=== PATIENT | female | born 1960 ===

== ENCOUNTER 2017-05-24 11:16 | Day surgery (SDC) | payer BC ==
[2017-05-24] MEDS ORDERED: Lactated Ringer's 1,000 ML IV ONE (14:00)
[2017-05-24] MEDS: Gentamicin 160 MG in Sodium Chloride 0.9% 100 ML IVPB ONE ×2 (14:04→14:15)
[2017-05-24] MEDS ORDERED: Propofol 10 mg/ml Inj (20 ML) ONE (14:05)
[2017-05-24] MEDS ORDERED: Midazolam 2 MG/2 ML VIAL ONE (14:07)
--- NOTE | 2017-05-24 14:38 | PCM.SURG1 ---
Surgeon's Initial Post Op Note - Surgeon's Notes Surgeon: Jung Donor Support Technician: nils Type of Anesthesia: General LMA Anesthesia Administered By: staff Pre-Operative Diagnosis: Right UPJ calculi Operative Findings: same Post-Operative Diagnosis: Right upj calculi Operation Performed: cysto stone manipulation insertion stent Specimen/Specimens Removed: na Estimated Blood Loss: EBL {In ML}: 0 Blood Products Given: N/A Drains Used: No Drains Post-Op Condition: Good Date of Surgery/Procedure: 05/24/17 Time of Surgery/Procedure: 14:38
[2017-05-24] MEDS ORDERED: Iohexol 240 (50 ml) ONE (14:41)
[2017-05-24] MEDS ORDERED: Lactated Ringer's 1,000 ML IV SCH (14:45)
[2017-05-24 16:11] VITALS: RESP 16; O2SAT 96
[2017-05-24 16:31] VITALS: BP 120/53; PULSE 80; TEMP 97.3
--- NOTE | 2017-05-24 16:56 | RAD ---
PROCEDURE: Intraoperative fluoroscopy HISTORY: RT KIDNEY CALCULI COMPARISON: Not available TECHNIQUE: Intraoperative fluoroscopy was provided for right ureteral stent placement. Total time of fluoroscopy was 3.4 seconds. FINDINGS: Three fluoroscopic spot films are submitted. Films are on file for review. IMPRESSION: Fluoroscopy provided.
--- NOTE | 2017-05-24 16:58 | RAD ---
HISTORY: RT KIDNEY CALCULI COMPARISON: No prior. FINDINGS: BOWEL: A nurse advocate radiograph demonstrates a normal bowel gas pattern. No abnormal intra-abdominal calcifications are seen. Surgical clips are seen in the right upper quadrant status post cholecystectomy. A 2nd film is submitted demonstrating placement of a right ureteral stent. Normal. No obstruction. No free air. BONES: Normal. OTHER FINDINGS: None. IMPRESSION: Right ureteral stent placement.
--- NOTE | 2017-07-05 09:39 | OP ---
PROCEDURE DATE: 05/24/2017 PREOPERATIVE DIAGNOSIS: Right ureteropelvic junction calculi. POSTOPERATIVE DIAGNOSIS: Right ureteropelvic junction calculi. PROCEDURE: Cysto, stone manipulation and insertion of stent. SURGEON: Uvaldo Feng MD DESCRIPTION OF PROCEDURE: As follows: Prior to the procedure, a detailed informed consent was obtained from the patient. She is aware of the procedure to be done, the limitations, its risks and complications. She agreed to accept those limitations and complications and proceed with the procedure. She was brought into the room, draped and prepped in the usual manner. A timeout was taken according to the rules and regulations of [facility]. A site check was taken by reviewing the x-report and x-ray films in the OR. Once this was done, the patient was draped and prepped in the usual manner and cystoscoped with #21 Storz panendoscope. The right ureteral orifice was cannulized with a 0.38 guidewire which is manipulated under fluoroscopic control into the renal pelvis and thereby pushing the UPJ stone backwards into the renal pelvis. A double-J stent was then passed over the guidewire and that was deployed with the distal end in the renal pelvis and the proximal end curled in the bladder. The patient tolerated the procedure well. She is aware that she needs further procedures such as lithotripsy done, then she should follow up in our office in one week. She was given the appropriate prescriptions. Uvaldo Feng MD
== END 2017-05-24 16:35 | disposition home or self-care (01) ==
LOC: MERGE 11:16 → C.SDS 11:16
PROVIDERS: ATTEND Urology
DX: N20.0 Calculus of kidney (principal); N20.2 Calculus of kidney with calculus of ureter
CPT/HCPCS: 52332; 74018; C1769; C2617; J1580; J7120; Q9966

== ENCOUNTER 2017-07-13 13:19 | Emergency (ER) | payer BC ==
[2017-07-13] MEDS ORDERED: Sodium Chloride 0.9% 1,000 ML IV ONE (15:18)
[2017-07-13 16:58] VITALS: RESP 18; O2SAT 97
--- NOTE | 2017-07-13 17:18 | C.PDOC ---
History Of Present Illness 56 yo female w/PMHx of Right kidney stone, s/p kidney stent removal by yesterday, come in for evaluation of sudden onset of Right flank pain associated with N/V since yesterday evening. Pt admits, " similar sx when I was diagnosed with Right kidney stones 1 year ago". Otherwise, pt denies high fever , chills, headache, dizziness, CP, SOB, dyspnea, diaphoresis, abd. pain, hematemesis, diarrhea, UTI sx. Ambulate to ED for evaluation, not in any apparent distress. Time Seen by Provider: 07/13/17 13:58 Chief Complaint (Nursing): Female Genitourinary History Per: Patient Past Medical History Reviewed: Historical Data, Nursing Documentation, Vital Signs Vital Signs: Last Vital Signs Temp 98.5 F 07/13/17 16:57 Pulse 80 07/13/17 16:57 Resp 18 07/13/17 16:57 BP 119/80 07/13/17 16:57 Pulse Ox 97 07/13/17 18:13 - Medical History PMH: Gall Bladder Disease, HTN, Kidney Stones, Chronic Kidney Disease Surgical History: Cholecystectomy Family History: States: Unknown Family Hx - Social History Hx Alcohol Use: No Hx Substance Use: No Review Of Systems Except As Marked, All Systems Reviewed And Found Negative. Constitutional: Negative for: Fever, Chills Eyes: Negative for: Vision Change ENT: Negative for: Ear Discharge, Nose Discharge, Throat Pain, Throat Swelling Cardiovascular: Negative for: Chest Pain Respiratory: Negative for: Cough Gastrointestinal: Positive for: Nausea, Vomiting Musculoskeletal: Positive for: Back Pain. Negative for: Neck Pain Skin: Negative for: Rash Neurological: Negative for: Weakness, Numbness, Altered Mental Status, Headache , Dizziness Physical Exam - Physical Exam Appears: Well, Non-toxic, No Acute Distress Skin: Normal Color, Warm, No Rash Head: Normacephalic Eye(s): bilateral: PERRL Nose: No Normal, No Discharge Oral Mucosa: Moist Throat: No Erythema Neck: Trachea Midline, Supple Chest: Symmetrical Cardiovascular: Rhythm Regular Respiratory: No Decreased Breath Sounds, No Accessory Muscle Use, No Stridor, No Wheezing Gastrointestinal/Abdominal: Soft, No Tenderness, No Distention, No Guarding Back: CVA Tenderness (Right) ED Course And Treatment - Laboratory Results Result Diagrams: 07/13/17 17:21 03/06/18 17:21 O2 Sat by Pulse Oximetry: 97 Pulse Ox Interpretation: Normal - CT Scan/US CT abd/pelvis Other Rad Studies (CT/US): Radiology Report Reviewed CT/US Interpretation: PROCEDURE: CT Abdomen and Pelvis without Oral or IV contrast. HISTORY: Right flank pain. COMPARISON: None available. TECHNIQUE : Contiguous axial images of the abdomen and pelvis. No oral or IV contrast administered. Coronal and Sagittal reformats generated. Radiation dose: Total exam DLP = 1117.10 mGy-cm. This CT exam was performed using one or more of the following dose reduction techniques: Automated exposure control, adjustment of the mA and/or kV according to patient size, and/or use of iterative reconstruction technique. FINDINGS: There is limited evaluation of the solid organs without the administration of IV contrast. LOWER THORAX: Mild patchy left lower lobe atelectasis or infiltrate. There is no visible pleural effusion or pneumothorax. Moderate to large hiatal hernia. LIVER: Unremarkable unenhanced appearance. GALLBLADDER AND BILE DUCTS: Cholecystectomy. PANCREAS : Unremarkable unenhanced appearance. SPLEEN: Unremarkable unenhanced appearance. ADRENALS: Unremarkable unenhanced appearance. KIDNEYS AND URETERS : 8 mm distal right ureteral calculus with proximal mild to moderate hydroureteronephrosis. Nonobstructing 4 mm right lower pole renal calculus. 1 mm nonobstructing left renal calculus. No left-sided hydroureter or hydronephrosis. BLADDER: The urinary bladder appears unremarkable. REPRODUCTIVE: Uterus is present. APPENDIX: The appendix appears within normal limits of caliber. No secondary signs of acute appendicitis. BOWEL: The stomach is nondistended. Lack of oral contrast limits evaluation for bowel pathology. The bowel loops appear within normal limits of caliber without evidence of intestinal obstruction. Diverticulosis without CT evidence of acute diverticulitis. PERITONEUM: No significant free fluid. No definite free air. LYMPH NODES: No bulky lymphadenopathy identified. VASCULATURE: No aortic aneurysm. BONES: No acute osseous abnormality is detected. OTHER FINDINGS: None. IMPRESSION: 8 mm obstructing distal right ureteral calculus with proximal mild to moderate hydroureteronephrosis. Diverticulosis without CT evidence of acute diverticulitis. Cholecystectomy clips. Mild patchy left lower lobe atelectasis or infiltrate. Correlate clinically. Moderate to large hiatal hernia. Additional findings as above. Progress Note: On re-eavl at 18:00, pt reports moderate improvement in pain. AFebrile, hemodynamicalys table. NOn-toxic. Pt was able tolerate Po intake. ENT: No acute findings. Lungs: CTA B/L, BS equyal B/L. ABd: benign, (-) guarding, (-) rebound. Back: (-) CVA tenderness. Blood work review, mild leukocytosis with left shift. BM_ normal renal function. UA (+) WBC, RBS. Case discussed with pt's Urologist , recommend antibiotic, analgesic, discharge with outpt f/u on 07/15/17. Rocephin given empirically for UTI, UCx- pending. Results review and discussed with pt. Pt understand and agrees with discharge. Disposition Counseled Patient/Family Regarding: Studies Performed, Diagnosis, Need For Followup, Rx Given - Disposition Referrals: Uvaldo Feng Jr., MD [Staff Provider] - Disposition: HOME/ ROUTINE Disposition Time: 18:09 Condition: STABLE Additional Instructions: Encourage fluids Flomax as prescribed by Take medication as prescribed today Follow up with on 07/15/17 for further evaluation and treatment. return to ED if any worsening or new changes. Prescriptions: Cefpodoxime [Vantin] 400 mg PO BID #28 tab Ondansetron ODT [Zofran ODT] 1 odt PO BID PRN #10 odt PRN Reason: Nausea/Vomiting traMADol [Ultram] 50 mg PO TID #7 tab Instructions: Urinary Tract Infections in Adults, Kidney Stones in Adults Forms: [facility] (Bahamian), Work/School/Gym Excuse - Clinical Impression Clinical Impression: Kidney stone, UTI (urinary tract infection)
[2017-07-13 17:24] LABS: BASO # 0.1 K/uL (0.0-0.2); BASO % 0.5 % (0.0-2.0); EOS % 0.2 % (0.0-4.0); HEMOGLOBIN 12.6 g/dL (11.0-16.0); LYMPH # 1.2 K/uL (1.0-4.3); LYMPH % 8.9 % (20.0-40.0); MEAN CELL VOLUME 85.5 fL (81.0-99.0); MEAN CORPUSCULAR HEMOGLOBIN 28.4 pg (27.0-31.0); MEAN CORPUSCULAR HGB CONC 33.2 g/dL (33.0-37.0); MEAN PLATELET VOLUME 7.4 fL (7.2-11.7); MONO # 0.9 K/uL (0.0-0.8); MONO % 6.9 % (0.0-10.0); NEUT # 10.9 K/uL (1.8-7.0); NEUT % 83.5 % (50.0-75.0); NRBC % 0.1 % (0.0-2.0); PLATELET COUNT 328 K/uL (130-400); RBC 4.45 Mil/uL (3.80-5.20); RED CELL DISTRIBUTION WIDTH 13.2 % (11.5-14.5)
[2017-07-13 17:30] LABS: SQUAMOUS EPITHIAL 5 /hpf (0-5); URINE BACTERIA RARE (<OCC); URINE BILIRUBIN NEGATIVE (NEGATIVE); URINE BLOOD 1+ (NEGATIVE); URINE CALCIUM OXALATE CRYSTALS MOD /hpf (<OCC); URINE CLARITY Hazy (Clear); URINE COLOR Yellow (YELLOW); URINE GLUCOSE (UA) NORMAL (Normal); URINE LEUKOCYTE ESTERASE TRACE Leu/uL (Negative); URINE NITRATE NEGATIVE (NEGATIVE); URINE PROTEIN 1+ mg/dL (NEGATIVE); URINE UROBILINOGEN NORMAL mg/dL (0.2-1.0)
--- NOTE | 2017-07-13 17:33 | CT ---
PROCEDURE: CT Abdomen and Pelvis without Oral or IV contrast. HISTORY: Right flank pain COMPARISON: None available. TECHNIQUE: Contiguous axial images of the abdomen and pelvis. No oral or IV contrast administered. Coronal and Sagittal reformats generated. Radiation dose: Total exam DLP = 1117.10 mGy-cm. This CT exam was performed using one or more of the following dose reduction techniques: Automated exposure control, adjustment of the mA and/or kV according to patient size, and/or use of iterative reconstruction technique. FINDINGS: There is limited evaluation of the solid organs without the administration of IV contrast. LOWER THORAX: Mild patchy left lower lobe atelectasis or infiltrate. There is no visible pleural effusion or pneumothorax. Moderate to large hiatal hernia. LIVER: Unremarkable unenhanced appearance. GALLBLADDER AND BILE DUCTS: Cholecystectomy. PANCREAS: Unremarkable unenhanced appearance. SPLEEN: Unremarkable unenhanced appearance. ADRENALS: Unremarkable unenhanced appearance. KIDNEYS AND URETERS: 8 mm distal right ureteral calculus with proximal mild to moderate hydroureteronephrosis. Nonobstructing 4 mm right lower pole renal calculus. 1 mm nonobstructing left renal calculus. No left-sided hydroureter or hydronephrosis. BLADDER: The urinary bladder appears unremarkable. REPRODUCTIVE: Uterus is present. APPENDIX: The appendix appears within normal limits of caliber. No secondary signs of acute appendicitis. BOWEL: The stomach is nondistended. Lack of oral contrast limits evaluation for bowel pathology. The bowel loops appear within normal limits of caliber without evidence of intestinal obstruction. Diverticulosis without CT evidence of acute diverticulitis. PERITONEUM: No significant free fluid. No definite free air. LYMPH NODES: No bulky lymphadenopathy identified. VASCULATURE: No aortic aneurysm. BONES: No acute osseous abnormality is detected. OTHER FINDINGS: None. IMPRESSION: 8 mm obstructing distal right ureteral calculus with proximal mild to moderate hydroureteronephrosis. Diverticulosis without CT evidence of acute diverticulitis. Cholecystectomy clips. Mild patchy left lower lobe atelectasis or infiltrate. Correlate clinically. Moderate to large hiatal hernia. Additional findings as above.
[2017-07-13 17:37] LABS: ALB/GLOB RATIO 1.1 (1.0-2.1); ALBUMIN 4.3 g/dL (3.5-5.0); ALT/SGPT 29 U/L (9-52); AST/SGOT 26 U/L (14-36); BLOOD UREA NITROGEN 14 mg/dL (7-17); CALCIUM 9.4 mg/dl (8.6-10.4); GFR AFRICAN-AMERICAN > 60; GFR NON-AFRICAN AMERICAN > 60; LIPASE 88 U/L (23-300)
[2017-07-13] MEDS ORDERED: cefTRIAXone IV 1 gm in Dextros 50 ML IVPB ONE (18:13)
[2017-07-13 18:18] LABS: EOSINOPHIL 1 % (0-4); LYMPHOCYTE 9 % (20-40); MONOCYTE 6 % (0-10); NEUTROPHIL 82 % (50-75); PLATELET ESTIMATE NORMAL (NORMAL); REACTIVE LYMPHOCYTES 2 % (0-0); TOTAL CELLS COUNTED 100
[2017-07-13 18:19] LABS: ANISOCYTOSIS SLIGHT
[2017-07-13 18:36] VITALS: BP 103/67; PULSE 82; TEMP 98.7
== END 2017-07-13 18:44 | disposition home or self-care (01) ==
LOC: C.ER 13:19
DX: N13.2 Hydronephrosis with renal and ureteral calculous obstruction (principal); N39.0 Urinary tract infection, site not specified; Z87.442 Personal history of urinary calculi
CPT/HCPCS: 74176; 80053; 81001; 83690; 85025; 87086; 96374; 96375; 99284; J0696; J1885; J2405; J7040

== ENCOUNTER 2017-07-19 10:59 | Day surgery (SDC) | payer BC ==
[2017-07-19 12:17] VITALS: BP 120/80
[2017-07-19] MEDS ORDERED: Gentamicin 160 MG in Sodium Chloride 0.9% 100 ML IVPB ONE (12:37)
[2017-07-19] MEDS ORDERED: Ciprofloxacin 400mg/200ml D5W 400 MG/200 ML BAG IVPB ONE (13:36)
[2017-07-19] MEDS ORDERED: Lidocaine 2% Jelly (Uro-Jet) ONE (13:37)
[2017-07-19] MEDS ORDERED: Iohexol 240 (50 ml) ONE (13:37)
[2017-07-19] MEDS ORDERED: Propofol 10 mg/ml Inj (20 ML) ONE ×2 (13:42→13:53)
[2017-07-19] MEDS ORDERED: Midazolam 2 MG/2 ML VIAL ONE (13:42)
[2017-07-19] MEDS ORDERED: HYDROmorphone 0.5 mg/0.5 ml ISec IVP PRN (14:12)
--- NOTE | 2017-07-19 14:34 | PCM.SURG1 ---
Surgeon's Initial Post Op Note - Surgeon's Notes Surgeon: Jung Service Car Driver: LEANDRO Type of Anesthesia: General LMA Anesthesia Administered By: Staff Pre-Operative Diagnosis: Right ureteral calculi Operative Findings: Right Ureteral cakculi Post-Operative Diagnosis: same Operation Performed: Ureteroscopy laser litho/stent insertion Specimen/Specimens Removed: na Estimated Blood Loss: EBL {In ML}: 0 Blood Products Given: N/A Drains Used: No Drains Post-Op Condition: Good Date of Surgery/Procedure: 07/19/17 Time of Surgery/Procedure: 14:34
--- NOTE | 2017-07-19 15:29 | RAD ---
PROCEDURE: Intraoperative Fluoroscopy. HISTORY: RT URETERAL CALCULI FINDINGS: Fluoroscopic assistance was provided for cystoscopy and fluoro. Please refer to the operative report from PADMINI Rinaldi. Total fluoroscopic time (continuous mode) utilized during the procedure: 86.8 seconds.
[2017-07-19 16:14] VITALS: PULSE 80; RESP 18; TEMP 98; O2SAT 100
--- NOTE | 2017-07-20 08:35 | OP ---
PROCEDURE DATE: PREOPERATIVE DIAGNOSIS: Right lower ureteral calculi. POSTOPERATIVE DIAGNOSIS: Right lower ureteral calculi. PROCEDURE: Ureteroscopy and laser lithotripsy. DESCRIPTION OF PROCEDURE: Prior to the procedure, a detailed informed consent was obtained from the patient after she was made aware of all risks, complications, and alternatives of the ureteroscopy and laser lithotripsy. Patient signed the consent and was willing to accept the risks. She was brought into the room. She received prophylactic antibiotics and she was cystoscoped with #21 Storz panendoscope. Fluoroscopy confirmed presence of the calculi in the lower ureter. A guidewire was passed into the right ureteral orifice and was manipulated with some difficulty above the stone, which was significantly impacted. Once it was manipulated into the renal pelvis, the scope was backed out and a ureteroscope was passed. A separate guidewire in the ureteroscope was then passed above the stone. The ureteral orifice was hydrodilated and the scope was passed up to the stone. The stone had buried itself in the left lateral wall of the ureter on the medial side and the stone was fragmented using a laser lithotripsy after removing the guidewire. Once adequate fragmentation was completed, a 7-Iraqi variable length ureteral catheter was deployed into the right ureter with the distal tip placed in the right renal pelvis and the proximal end in the bladder. Patient tolerated this procedure well. Using dye during the procedure, there was a small amount of extravasation, so the stent should be left in place for at least 10 days. Uvaldo Feng MD
--- NOTE | 2017-07-20 13:44 | RAD ---
HISTORY: RT URETERAL CALCULI COMPARISON: CT abdomen and pelvis 07/14/2007 noncontrast FINDINGS: BOWEL: Right-sided stool retention. No obstruction. No free air. BONES: Bilateral hip mild arthrosis OTHER FINDINGS: A 4 mm calcification compatible with the right lower renal pole calculus is noted this was referenced on the prior CT exam. A larger right hemipelvic calcification 7 to 8 mm is present compatible with the previously referenced 8 mm distal right ureteral obstructing calculus . The CT referenced 1 mm nonobstructing left renal calculus -noted the extreme lower pole is not appreciated on this exam. IMPRESSION: 7-8 mm distal right ureteral calculus -unchanged in position. 4 mm right lower renal pole calculus-unchanged The CT left lower renal pole 1 mm calcification- not appreciated on this exam. Right stool retention. Bilateral hip mild arthrosis
== END 2017-07-19 16:29 | disposition home or self-care (01) ==
LOC: C.SDS 10:59
PROVIDERS: ATTEND Urology
DX: N20.1 Calculus of ureter (principal)
CPT/HCPCS: 52356; 74019; C1769; C2617; J0744; J1580; Q9966

== ENCOUNTER → 2017-08-02 | Day surgery (SDC) | payer BC ==
[~2017-08-02] MED LIST: Ciprofloxacin 400mg/200ml D5W 0 MG/0 ML BAG IVPB ONE; Gentamicin 160 MG in Sodium Chloride 0.9% 100 ML IVPB ONE; Propofol 10 mg/ml Inj (20 ML) ONE
[2017-08-02 13:13] VITALS: BP 110/70; PULSE 90; RESP 18; TEMP 97.6; O2SAT 97
--- NOTE | 2017-08-02 14:48 | PCM.SURG1 ---
Surgeon's Initial Post Op Note - Surgeon's Notes Surgeon: era Electrical Instrument Repairer: nils Type of Anesthesia: None Anesthesia Administered By: na Pre-Operative Diagnosis: Right ureteral calculi Operative Findings: Persistant ureteral calculi Post-Operative Diagnosis: same Operation Performed: KUB Specimen/Specimens Removed: na Estimated Blood Loss: EBL {In ML}: 0 Blood Products Given: N/A Drains Used: No Drains Post-Op Condition: Good Date of Surgery/Procedure: 08/02/17 Time of Surgery/Procedure: 14:47 (The cysto was cancelled after KUB showed persistant calculi)
--- NOTE | 2017-08-02 17:57 | RAD ---
HISTORY: CYSTO COMPARISON: 07/28/2017. FINDINGS: BOWEL: Constipation without fecal impaction or obstruction. BONES: Normal. OTHER FINDINGS: Position of the double J stent catheter(s): Satisfactory and unchanged. No visible radiopaque calculi. IMPRESSION: No significant interval change compared to the prior examination(s).
--- NOTE | 2017-08-03 02:05 | OP ---
PROCEDURE DATE: 08/02/2017 PREOPERATIVE DIAGNOSIS: Right ureteral calculi, status post lithotripsy. POSTOPERATIVE DIAGNOSIS: Right ureteral calculi, status post lithotripsy. PROCEDURE: KUB. SURGEON: Uvaldo Feng MD DESCRIPTION OF PROCEDURE: As follows; prior to the procedure, a detailed informed consent was obtained from the patient. She is aware that we recommend in longer that she may have not passed all calculi. The patient was identified and brought into the room, and after she signed an appropriate consent, KUB was taken. KUB showed that there were still some stone fragments present in the upper ureter. Based on these findings, the patient elected to not have the procedure done today. She will be discharged with stents in place. She will continue on antibiotics. She may return to work, and she should have a KUB done in another 10 days. Follow up in our office in two weeks. She understood these instructions. She also is aware that she must collect any stones passed. Uvaldo Feng MD
== END | disposition home or self-care (01) ==
LOC: C.SDS 11:33
PROVIDERS: ATTEND Urology
DX: N20.1 Calculus of ureter (principal); Z53.8 Procedure and treatment not carried out for other reasons; I10 Essential (primary) hypertension; I45.10 Unspecified right bundle-branch block

== ENCOUNTER 2017-08-23 11:39 | Day surgery (SDC) | payer BC ==
[2017-08-20 10:12] VITALS: BMI 35.6
[2017-08-23] MEDS ORDERED: Ciprofloxacin 400mg/200ml D5W 400 MG/200 ML BAG IVPB ONE (12:53)
[2017-08-23] MEDS ORDERED: Lactated Ringer's 1,000 ML IV ONE (13:05)
[2017-08-23] MEDS ORDERED: Midazolam 2 MG/2 ML VIAL ONE (13:06)
[2017-08-23] MEDS ORDERED: Propofol 10 mg/ml Inj (20 ML) ONE (13:07)
[2017-08-23] MEDS ORDERED: Lidocaine Hydrochloride 5 ML INJ ONE (13:11)
[2017-08-23] MEDS ORDERED: Lidocaine 2% Jelly (Uro-Jet) ONE (13:28)
[2017-08-23] MEDS ORDERED: Gentamicin 160 MG in Sodium Chloride 0.9% 100 ML IVPB ONE (13:30)
--- NOTE | 2017-08-23 13:34 | PCM.SURG1 ---
Surgeon's Initial Post Op Note - Surgeon's Notes Surgeon: Jung Teleservices Representative: nils Type of Anesthesia: General Mask Anesthesia Administered By: staff Pre-Operative Diagnosis: Right ureteral stent Operative Findings: right ureteral stent/no evidence calculi Post-Operative Diagnosis: Right ureteral stent Operation Performed: Cysto removal of stent/kub Specimen/Specimens Removed: stent Estimated Blood Loss: EBL {In ML}: 0 Blood Products Given: N/A Drains Used: No Drains Post-Op Condition: Good Date of Surgery/Procedure: 08/23/17 Time of Surgery/Procedure: 13:34
[2017-08-23 14:57] VITALS: BP 110/80; PULSE 70; RESP 18; TEMP 97; O2SAT 100
--- NOTE | 2017-08-24 07:14 | OP ---
PROCEDURE DATE: 08/23/2017 PREOPERATIVE DIAGNOSIS: Retained ureteral stent. POSTOPERATIVE DIAGNOSIS: Retained ureteral stent. No evidence of ureteral or renal calculi. PROCEDURE: KUB plus cystoscopy and removal of stent. SURGEON: Uvaldo Feng MD DESCRIPTION OF PROCEDURE: Prior to the procedure, the patient was asked to sign a detailed informed consent. She was apprised of all the risks and complications of the procedure including extravasation of urine and possible nonvisualized retained stone causing renal colic. She accepted the risks and signed the consent. She was brought into the room and draped and prepped in the usual manner. A KUB was performed and showed no evidence of ureteral calculi. The patient then received prophylactic antibiotics and 2% Xylocaine jelly per urethra. She was cystoscoped with #21 Storz panendoscope. The stent was visualized, grasped and removed. The patient tolerated this very well. She will be on Cipro for 1 week. She has been given detailed postoperative instructions on how to manage any possible pain or complications, and she will follow up in our office in 1 week. Uvaldo Feng MD
--- NOTE | 2017-08-24 18:46 | RAD ---
HISTORY: RT STENT REMOVAL COMPARISON: 08/16/2017 FINDINGS: BOWEL: Normal. No obstruction. No free air. BONES: Normal. OTHER FINDINGS: Two images submitted from the study 1 preceding and following removal of double-J stent catheter on the right. IMPRESSION: Documentation of removal of double-J stent catheter.
== END 2017-08-23 15:26 | disposition home or self-care (01) ==
LOC: C.SDS 11:39
PROVIDERS: ATTEND Urology
DX: T83.192A Other mechanical complication of indwelling ureteral stent, initial encounter (principal)
CPT/HCPCS: 52310; 74018; 88300; J0744; J1580; J7120

== ENCOUNTER 2018-07-24 11:12 | Emergency (ER) | payer BC ==
[2018-07-24 11:12] VITALS: BMI 35.6
[2018-07-24] MEDS ORDERED: Sodium Chloride 0.9% 1,000 ML IV ONE (12:26)
[2018-07-24] MEDS ORDERED: Sodium Chloride 0.9% 1,000 ML ONE (12:44)
--- NOTE | 2018-07-24 12:58 | C.PDOC ---
History Of Present Illness 57 year old female with a PMHx of kidney stones (3), kidney stone removal, and cholecystectomy presents for right sided flank pain associated with vomiting and chills that started last night. Pt reports having similar symptoms when diagnosed with kidney stones 1 year ago. Denies hematuria, diarrhea, and any other associated symptoms. Time Seen by Provider: 07/24/18 11:39 Chief Complaint (Nursing): Back Pain History Per: Patient History/Exam Limitations: no limitations Onset/Duration Of Symptoms: Hrs Current Symptoms Are (Timing): Still Present Recent travel outside of the [place]: No Past Medical History Reviewed: Historical Data, Nursing Documentation, Vital Signs Vital Signs: Last Vital Signs Temp 98.5 F 07/24/18 11:23 Pulse 83 07/24/18 11:23 Resp 20 07/24/18 11:23 BP 180/96 H 07/24/18 11:23 Pulse Ox 98 07/24/18 11:23 - Medical History PMH: Gall Bladder Disease, HTN, Kidney Stones, Chronic Kidney Disease Surgical History: Cholecystectomy Family History: States: Unknown Family Hx - Social History Hx Alcohol Use: No Hx Substance Use: No - Immunization History Hx Pneumococcal Vaccination: No Review Of Systems Except As Marked, All Systems Reviewed And Found Negative. Constitutional: Positive for: Chills Gastrointestinal: Positive for: Vomiting, Abdominal Pain (right sided flank pain. ). Negative for: Diarrhea Genitourinary: Negative for: Hematuria Physical Exam - Physical Exam Appears: Non-toxic, No Acute Distress Skin: Warm, Dry, No Rash Head: Atraumatic, Normacephalic Eye(s): bilateral: Normal Inspection Oral Mucosa: Moist Neck: Normal ROM, Supple Chest: Symmetrical, No Deformity Cardiovascular: Rhythm Regular, No Murmur Respiratory: Normal Breath Sounds, No Rales, No Rhonchi, No Wheezing Gastrointestinal/Abdominal: Normal Exam, Soft, No Tenderness Back: CVA Tenderness (right-sided. ) Extremity: Bilateral: Atraumatic, Normal Color And Temperature, Normal ROM Neurological/Psych: Oriented x3, Normal Speech, Normal Cognition ED Course And Treatment - Laboratory Results Result Diagrams: 07/24/18 13:03 07/24/18 13:03 O2 Sat by Pulse Oximetry: 98 (RA) Pulse Ox Interpretation: Normal Medical Decision Making Medical Decision Making: Initial plan: -CT ABD & Pelvis w/o PO or IV contrast -Blood sent. -Zofran -Urine culture -Urinalysis The results were discussed with the patient. She states that she has a urologist, Dr. Feng. Call placed to Dr. Feng with no response. The patient was instructed to see Dr. Feng within 24 hours for further evaluation. Vitals and labs are WNL's. On re-exam, the patient reports improvement of symptoms. Lungs are CTA, heart is RRR, abdomen is soft, non-tender and the patient is tolerating PO well. The patient is ambulatory in the ED with steady gait. Patient was instructed to follow up with the medical doctor within 1-2 days. Return if worsened. Disposition - Disposition Referrals: Uvaldo Feng Jr., MD [Staff Provider] - Disposition: HOME/ ROUTINE Disposition Time: 15:08 Condition: GOOD Additional Instructions: Follow up with the medical doctor within 1-2 days. Return if worsened. Prescriptions: Ciprofloxacin HCl [Cipro] 500 mg PO BID #19 tab Naproxen [Naprosyn] 500 mg PO BID #20 tab oxyCODONE/Acetaminophen [Percocet 5/325 mg Tab] 1 tab PO QID PRN #10 tab PRN Reason: Pain Tamsulosin [Flomax] 0.4 mg PO DAILY #10 cap Instructions: Renal Colic (DC) Forms: [facility] ([place]an), Work Excuse - Clinical Impression Clinical Impression: Renal colic - PA / PICKLE SORTER / Resident Statement MD/DO has reviewed & agrees with the documentation as recorded. - Scribe Statement The provider has reviewed the documentation as recorded by the Scribe (Corine Villatoro) All medical record entries made by the Scribe were at my direction and personally dictated by me. I have reviewed the chart and agree that the record accurately reflects my personal performance of the history, physical exam, medical decision making, and the department course for this patient. I have also personally directed, reviewed, and agree with the discharge instructions and disposition.
[2018-07-24 13:13] LABS: BASO % 0.4 % (0.0-2.0); EOS % 0.1 % (0.0-4.0); LYMPH # 1.3 K/uL (1.0-4.3); MEAN CELL VOLUME 85.5 fL (81.0-99.0); MEAN CORPUSCULAR HEMOGLOBIN 28.6 pg (27.0-31.0); MEAN CORPUSCULAR HGB CONC 33.5 g/dL (33.0-37.0); MEAN PLATELET VOLUME 7.3 fL (7.2-11.7); MONO # 0.9 K/uL (0.0-0.8); MONO % 8.4 % (0.0-10.0); NEUT # 8.5 K/uL (1.8-7.0); NEUT % 79.1 % (50.0-75.0); RBC 4.89 Mil/uL (3.80-5.20); RED CELL DISTRIBUTION WIDTH 13.4 % (11.5-14.5); WHITE BLOOD COUNT 10.7 K/uL (4.8-10.8)
[2018-07-24 13:14] LABS: SQUAMOUS EPITHIAL 5 /hpf (0-5); URINE BACTERIA RARE (<OCC); URINE BILIRUBIN NEGATIVE (NEGATIVE); URINE BLOOD 1+ (NEGATIVE); URINE CLARITY Clear (Clear); URINE COLOR Amber (YELLOW); URINE GLUCOSE (UA) NORMAL (Normal); URINE LEUKOCYTE ESTERASE NEG Leu/uL (Negative); URINE PROTEIN NEGATIVE (NEGATIVE); URINE UROBILINOGEN NORMAL mg/dL (0.2-1.0)
[2018-07-24 13:22] LABS: ALB/GLOB RATIO 1.3 (1.0-2.1); ALBUMIN 4.6 g/dL (3.5-5.0); ALT/SGPT 7 U/L (9-52); AST/SGOT 27 U/L (14-36); BLOOD UREA NITROGEN 15 mg/dL (7-17); CALCIUM 9.8 mg/dl (8.6-10.4); GFR NON-AFRICAN AMERICAN > 60; LIPASE 65 U/L (23-300)
--- NOTE | 2018-07-24 14:42 | CT ---
CT abdomen and pelvis HISTORY: Right flank pain. COMPARISON: CT dated 07/13/2017 TECHNIQUE: Multiple contiguous axial images were performed through the abdomen and pelvis without the use of intravenous contrast. Subsequently, sagittal and coronal reformatted images were obtained. This CT exam was performed using one or more of the following dose reduction techniques: Automated exposure control, adjustment of the mA and/or kV according to patient size, and/or use of iterative reconstruction technique. FINDINGS: Scattered atelectasis and consolidation at the lung bases. Coronary calcifications No pleural or pericardial effusion. Heterogeneous attenuation of the liver. Surgical clips at the gallbladder hiatus. Spleen is preserved. Adrenal glands are preserved. Pancreas is preserved. Moderate hiatal hernia. Right kidney: Severe right renal hydroureteronephrosis with obstructing calculus measuring 5 millimeters at the distal right ureter. Associated perinephric fat stranding. In addition, calculi noted within the midpole of the right kidney measuring 3.5 millimeters and lower pole measuring 6.5 millimeters. Left Kidney: 3.9 millimeter nonobstructive calculus in the midpole of the left kidney. No gross calculi or hydronephrosis. Urinary bladder is preserved. Heterogeneous uterus and bilateral adnexa. Colonic diverticulosis. Under distended and or mildly thickened sigmoid colon. Fecal retention in the right hemicolon. Appendix is within normal limits. Atherosclerotic calcification plaque in the aorta. Few shotty para-aortic and inguinal lymph nodes. Few shotty mesenteric lymph nodes. Degenerative changes in the spine and bilateral hips. Impression: 1. Severe right renal hydroureteronephrosis with obstructing calculus measuring 5 millimeters at the distal right ureter. Associated perinephric fat stranding. In addition, calculi noted within the midpole of the right kidney measuring 3.5 millimeters and lower pole measuring 6.5 millimeters. 2. 3.9 millimeter nonobstructive calculus in the midpole of the left kidney. No hydronephrosis. 3. Moderate hiatal hernia. 4. Colonic diverticulosis. Under distended and or mildly thickened sigmoid colon. Fecal retention in the right hemicolon.
[2018-07-24 15:35] VITALS: BP 129/80; PULSE 73; RESP 17; TEMP 98.7
[2018-07-25 21:20] VITALS: O2SAT 98
== END 2018-07-24 15:34 | disposition home or self-care (01) ==
LOC: C.ER 11:12
DX: N13.2 Hydronephrosis with renal and ureteral calculous obstruction (principal); Z87.442 Personal history of urinary calculi
CPT/HCPCS: 74176; 80053; 81001; 83690; 85025; 87086; 96374; 96375; 99285; J1885; J2405; J7030

== ENCOUNTER 2018-08-08 01:02 | Emergency (ER) | payer BC ==
[2018-08-08 01:02] VITALS: BMI 35.6
[2018-08-08 01:23] VITALS: TEMP 98.6
--- NOTE | 2018-08-08 02:22 | C.PDOC ---
History Of Present Illness 57 year old female with PMHx of vertigo presents to the ED c/o dizziness that started today. Patient reports dizziness started this morning when she woke up to go to the bathroom, symptoms relieved after flonase. Patient states similar episode occurred later at night took no medications for it. Patient reports dizziness worsens with positions change, laying down and sitting up. Patient denies headache, visual changes, nausea, vomit, diarrhea, back pain, neck pain. Time Seen by Provider: 08/08/18 01:18 Chief Complaint (Nursing): Dizziness/Lightheaded History Per: Patient History/Exam Limitations: no limitations Onset/Duration Of Symptoms: Hrs Current Symptoms Are (Timing): Still Present Activity At Onset Of Symptoms: Walking Associated Symptoms Preceding Syncopal Episode: Vertigo Worse With Change In Head Position Seizure Or Post-ictal Symptoms: None Possible Causative Factor(s): Vertigo Fall Associated With With Symptoms: No Severity: None Recent travel outside of the [place]: No Additional History Per: Patient Past Medical History Reviewed: Historical Data, Nursing Documentation, Vital Signs Vital Signs: Last Vital Signs Temp 98.6 F 08/08/18 01:16 Pulse 99 H 08/08/18 01:16 Resp 22 08/08/18 01:16 BP 144/94 H 08/08/18 01:16 Pulse Ox 96 08/08/18 01:16 - Medical History PMH: Gall Bladder Disease, HTN, Kidney Stones, Chronic Kidney Disease Other PMH: BPV Surgical History: Cholecystectomy Family History: States: Unknown Family Hx - Social History Hx Alcohol Use: No Hx Substance Use: No - Immunization History Hx Pneumococcal Vaccination: No Review Of Systems Constitutional: Negative for: Fever, Chills Eyes: Negative for: Vision Change Cardiovascular: Negative for: Chest Pain Respiratory: Negative for: Shortness of Breath Gastrointestinal: Negative for: Nausea, Vomiting, Abdominal Pain Skin: Negative for: Rash Neurological: Positive for: Dizziness. Negative for: Weakness, Numbness, Headache Physical Exam - Physical Exam Appears: Non-toxic, No Acute Distress Skin: Normal Color, Warm, Dry Head: Atraumatic, Normacephalic Eye(s): bilateral: Normal Inspection, PERRL, EOMI Nose: No Discharge, Other (moderate nasal passage erythema) Neck: Normal ROM, No Midline Cervical Tenderness, Supple Chest: Symmetrical Cardiovascular: Rhythm Regular Respiratory: Normal Breath Sounds, No Rales, No Rhonchi, No Wheezing Gastrointestinal/Abdominal: Soft, No Tenderness, No Guarding, No Rebound Extremity: Normal ROM, No Tenderness, No Swelling Neurological/Psych: Oriented x3, Normal Speech, Normal Cognition Gait: Steady ED Course And Treatment ECG: Interpreted By Me, Viewed By Me ECG Rhythm: Sinus Rhythm, R BBB Rate From EC (BPM) O2 Sat by Pulse Oximetry: 96 (ON RA) Pulse Ox Interpretation: Normal Reevaluation Time: : Reassessment Condition: Improved Medical Decision Making Medical Decision Making: Plan: * Antivert 50 mg PO * Motrin 600 mg PO recurrent bpv resolved with ED tx Disposition Doctor Will See Patient In The: Office Counseled Patient/Family Regarding: Studies Performed, Diagnosis - Disposition Referrals: Umesh Alvarez Jr., MD [Medical Doctor] - Disposition: HOME/ ROUTINE Disposition Time: Condition: GOOD Additional Instructions: meclizine/Antivert 25 mg every 6 hours as needed for symptoms of Benign Positional Vertigo Always take with Motrin/Advil 400 mg- works better in combination outpatient followup as needed. Prescriptions: Meclizine [Meclizine*] 25 mg PO Q6 PRN #30 tab PRN Reason: vertigo Instructions: Vertigo (a Type of Dizziness) Forms: [facility] ([place]) - Clinical Impression Clinical Impression: Vertigo - Scribe Statement The provider has reviewed the documentation as recorded by the Scribe George Bennett All medical record entries made by the Scribe were at my direction and personally dictated by me. I have reviewed the chart and agree that the record accurately reflects my personal performance of the history, physical exam, medical decision making, and the department course for this patient. I have also personally directed, reviewed, and agree with the discharge instructions and disposition.
[2018-08-08 02:30] VITALS: BP 127/76; PULSE 73; RESP 15
[2018-08-08 02:31] VITALS: O2SAT 96
--- NOTE | 2018-08-09 20:48 | CARD ---
APPROVED REPORT Date of service: 08/08/2018 EKG Measurement Heart [id number] <Conclusion> Normal sinus rhythm Right bundle branch block Abnormal ECG
== END 2018-08-08 02:30 | disposition home or self-care (01) ==
LOC: C.ER 01:02
DX: R42 Dizziness and giddiness (principal); I12.9 Hypertensive chronic kidney disease with stage 1 through stage 4 chronic kidney disease, or unspecified chronic kidney disease; N18.9 Chronic kidney disease, unspecified